=== PATIENT | female | born 1945 | race Caucasian/White ===

== ENCOUNTER 2018-11-17 18:31 | Emergency (ER) | payer MEDICARE, MEDICAID ==
[~2018-11-17] VITALS: Ht 157.5 cm; Wt 50.8 kg
[~2018-11-17 18:31] MED LIST: ALBU2.5V4 IH; ASPI-586 PO; CARV6.252 PO; HYDR-34 PO; HYDR-3820 PO; LISI-552 PO; OXYC40TA46 PO; PITA2TAB2 PO; POTA10TA6 PO; RT-ALBUINH IH
[2018-11-17 18:50] LABS: BILIRUBIN,URINE NEGATIVE (NEGATIVE); CLARITY,URINE CLEAR; COLOR,URINE PALE YELLOW; GLUCOSE, URINE (UA) NEGATIVE (NEGATIVE); KETONES,URINE NEGATIVE (NEGATIVE); LEUKOCYTE ESTERASE ,URINE TRACE (NEGATIVE); NITRITE,URINE NEGATIVE (NEGATIVE); PH,URINE 6.5 (5-9); PROTEIN,URINE NEGATIVE (NEGATIVE); UROBILINOGEN,URINE 0.2 MG/DL (NORMAL)
[2018-11-17 18:51] LABS: BACTERIA,URINE NEGATIVE /HPF; SQUAMOUS EPITHELIAL CELL,UR 0-2 /HPF; WBC,URINE RARE /HPF
--- NOTE | 2018-11-17 20:33 | NUR ---
attempted iv, able to get blood but coudnt thread iv
[2018-11-17 20:41] LABS: HEMATOCRIT 48 % (35-52); MEAN CORPUSCULAR HEMOGLOBIN 32 PG (25-34); MEAN CORPUSCULAR HGB CONC 34 G/DL (32-36); MEAN CORPUSCULAR VOLUME 96 FL (80-99); RED CELL DISTRIBUTION WIDTH 12.2 % (10.0-14.5); WHITE BLOOD COUNT 10.5 10^3/uL (4.3-11.0)
--- NOTE | 2018-11-17 20:41 | NUR ---
pt wanting to take nighttime pain medication, Dr Sandy notified and oked pain medication. pt able to take without difficulty.
[2018-11-17 20:42] LABS: BASOPHILS # (AUTO) 0.1 10^3/uL (0.0-0.1); BASOPHILS % (AUTO) 1 % (0-10); EOSINOPHILS # (AUTO) 0.2 10^3/uL (0.0-0.3); EOSINOPHILS % (AUTO) 2 % (0-10); LYMPHOCYTES # (AUTO) 2.3 X 10^3 (1.0-4.0); LYMPHOCYTES % (AUTO) 22 % (12-44); MONOCYTES # (AUTO) 0.6 X 10^3 (0.0-1.0); MONOCYTES % (AUTO) 6 % (0-12); NEUTROPHILS # (AUTO) 7.4 X 10^3 (1.8-7.8); NEUTROPHILS % (AUTO) 70 % (42-75); PLATELET COUNT 311 10^3/uL (130-400)
[2018-11-17 20:58] LABS: ALANINE AMINOTRANSFERASE 10 U/L (0-55); ALBUMIN 4.3 GM/DL (3.2-4.5); ALKALINE PHOSPHATASE 118 U/L (40-136); BILIRUBIN,TOTAL 0.4 MG/DL (0.1-1.0); BUN/CREATININE RATIO 18; CALCIUM 9.5 MG/DL (8.5-10.1); CARBON DIOXIDE 22 MMOL/L (21-32); CHLORIDE 103 MMOL/L (98-107); CREATININE SERUM 0.55 MG/DL (0.60-1.30); GFR ESTIMATED > 60; GLUCOSE 102 MG/DL (70-105); LIPASE 15 U/L (8-78); SODIUM 140 MMOL/L (135-145); TOTAL PROTEIN 7.3 GM/DL (6.4-8.2)
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
--- NOTE | 2018-11-17 22:15 | Diagnostic Imaging Report ---
PROCEDURE: CT urinary tract, rule out kidney stone. TECHNIQUE: Multiple contiguous axial images were obtained through the abdomen and pelvis without the use of intravenous contrast. Auto Exposure Controls were utilized during the CT exam to meet ALARA standards for radiation dose reduction. INDICATION: Right flank pain. COMPARISON: There are no prior studies available for comparison. FINDINGS: There is no evidence for nephrolithiasis. The renal pelves are somewhat prominent, particularly the right renal pelvis. 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 There is no evidence for obstructive calculus involving either collecting system. There is no sign of a solid renal mass. There is a calcification near the base of the bladder on the left. This seems to be extrinsic to the left ureter, however. The urinary bladder is grossly unremarkable. The uterus is surgically absent. There is diverticulosis of the sigmoid colon but there is no sign of an acute diverticulitis. The appendix is visualized and is not abnormally thickened. The liver, spleen, pancreas, adrenals, aorta and inferior vena cava show no sign of an acute abnormality. The gallbladder is surgically absent. The common bile duct near its entry into the head of the pancreas is dilated, measuring 11 mm. The proximal biliary tree is also slightly dilated. There is no obstructive calculus or mass identified, however. I suspect that the dilatation of the common bile duct is related to the prior cholecystectomy. If further evaluation of the duct is desired, then MRCP would be recommended. The stomach is only partially distended and consequently difficult to assess. The lung bases show chronic pulmonary changes. There is no evidence for pneumonia or for a pleural effusion. The bone windows are unremarkable for a fracture or for a destructive lesion. IMPRESSION: 1. The renal pelves are somewhat prominent, but there is no sign of obstructive calculus. 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 If further evaluation is desired, then a followup CT exam with intravenous contrast would be recommended. 2. There is no acute abnormality in the abdomen or pelvis noted otherwise. 3. The common bile duct and the proximal biliary tree are dilated. There is no evidence for an obstructive calculus or mass and the dilatation of the common bile duct is probably related to the patient's prior cholecystectomy. If further study is desired, then MRCP would be recommended. Dictated by: Dictated on workstation # [id number]
[2018-11-17] MEDS ORDERED: METR-145 PO (23:58)
[2018-11-18 00:03] VITALS: BP 122/37
== END 2018-11-18 00:03 | disposition home or self-care (01) ==
LOC: EDUNIT# 18:31 → ER FS 18:33
DX: R10.9 Unspecified abdominal pain (principal); R19.7 Diarrhea, unspecified; J44.9 Chronic obstructive pulmonary disease, unspecified; M81.0 Age-related osteoporosis without current pathological fracture; E03.9 Hypothyroidism, unspecified; F17.210 Nicotine dependence, cigarettes, uncomplicated; Z87.19 Personal history of other diseases of the digestive system; Z88.2 Allergy status to sulfonamides; Z88.8 Allergy status to other drugs, medicaments and biological substances; Z85.828 Personal history of other malignant neoplasm of skin; Z91.048 Other nonmedicinal substance allergy status; Z79.82 Long term (current) use of aspirin
CPT/HCPCS: 36415; 74176; 80053; 81000; 83690; 85025

== ENCOUNTER → 2020-06-02 | Outpatient (CLI) | payer MEDICARE, MEDICAID ==
[~2020-06-02] MED LIST changes: +ACHYD1T PO; -HYDR-3820 PO; +METR-145 PO
--- NOTE | 2020-06-02 12:47 | Diagnostic Imaging Report ---
INDICATION: Arm pain COMPARISON: None. FINDINGS: 2 views of the left humerus were obtained and show no fractures, dislocations, or other acute bony abnormalities. Joint spaces are well maintained throughout. The soft tissues appear unremarkable. No radiopaque foreign bodies are identified. IMPRESSION: Unremarkable radiographic exam of the left humerus. Dictated by: Dictated on workstation # [id number]
--- NOTE | 2020-06-02 12:54 | Diagnostic Imaging Report ---
INDICATION: Shoulder pain COMPARISON: None. FINDINGS: 2 views of the left shoulder were obtained. There is no fracture, dislocation, or other acute bony abnormality identified. The soft tissues appear unremarkable. No radiopaque foreign bodies identified. The visualized portions of the left lung are clear. IMPRESSION: No acute fractures or dislocations of the left shoulder. Dictated by: Dictated on workstation # [id number]
== END ==
LOC: RAD FS 12:29
PROVIDERS: ATTEND Nurse Practitioner Family
DX: M79.622 Pain in left upper arm (principal); M25.512 Pain in left shoulder
CPT/HCPCS: 73030; 73060

== ENCOUNTER 2020-12-30 10:29 | Emergency (ER) | payer MEDICARE, MEDICAID ==
[~2020-12-30] VITALS: Ht 152 cm; Wt 48.0 kg
[~2020-12-30 10:29] MED LIST changes: -LISI-552 PO; +LISI20TA26 PO
[2020-12-30 11:00] LABS: BILIRUBIN,URINE NEGATIVE (NEGATIVE); CLARITY,URINE CLOUDY; COLOR,URINE YELLOW; GLUCOSE, URINE (UA) NEGATIVE (NEGATIVE); KETONES,URINE NEGATIVE (NEGATIVE); LEUKOCYTE ESTERASE ,URINE 1+ (NEGATIVE); NITRITE,URINE POSITIVE (NEGATIVE); PH,URINE 5.5 (5-9); PROTEIN,URINE NEGATIVE (NEGATIVE)
[2020-12-30 11:01] LABS: BACTERIA,URINE MODERATE /HPF; SQUAMOUS EPITHELIAL CELL,UR 0-2 /HPF; WBC,URINE >100 /HPF
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
[2020-12-30 11:12] LABS: BASOPHILS % (AUTO) 1 % (0-10); EOSINOPHILS % (AUTO) 2 % (0-10); HEMATOCRIT 45 % (35-52); HEMOGLOBIN 14.9 G/DL (11.5-16.0); LYMPHOCYTES % (AUTO) 21 % (12-44); MEAN CORPUSCULAR HEMOGLOBIN 32 PG (25-34); MEAN CORPUSCULAR HGB CONC 33 G/DL (32-36); MEAN CORPUSCULAR VOLUME 96 FL (80-99); MEAN PLATELET VOLUME 9.8 FL (7.4-10.4); MONOCYTES % (AUTO) 8 % (0-12); NEUTROPHILS % (AUTO) 69 % (42-75); PLATELET COUNT 387 10^3/uL (130-400); WHITE BLOOD COUNT 11.7 10^3/uL (4.3-11.0)
[2020-12-30 11:13] LABS: BASOPHILS # (AUTO) 0.1 10^3/uL (0.0-0.1); EOSINOPHILS # (AUTO) 0.2 10^3/uL (0.0-0.3); LYMPHOCYTES # (AUTO) 2.5 X 10^3 (1.0-4.0); NEUTROPHILS # (AUTO) 8.1 X 10^3 (1.8-7.8)
[2020-12-30] MEDS ORDERED: CIPR500T5 PO (11:14)
--- NOTE | 2020-12-30 11:27 | Diagnostic Imaging Report ---
EXAMINATION: CT head without contrast. TECHNIQUE: Multiple contiguous axial images were obtained through the brain without the use of intravenous contrast. All CT scans use one or more of the following dose optimizing techniques: automated exposure control, MA and/or KvP adjustment based on patient size and exam type or iterative reconstruction. HISTORY: Altered mental status. Memory loss. Dizziness. COMPARISON: None available. FINDINGS: No large acute territorial ischemia, mass, or hemorrhage. No midline shift or mass effect. The ventricles, cortical sulci, and basilar cisterns are patent and unremarkable. The orbits are normal. Paranasal sinuses are normal. Mastoid air cells are clear. No soft tissue abnormality is seen. No osseus lesions or fractures are seen. IMPRESSION: 1. No large acute territorial ischemia, mass, or hemorrhage. Dictated by: Dictated on workstation # [id number]
[2020-12-30 11:33] LABS: ALANINE AMINOTRANSFERASE 10 U/L (0-55); ALKALINE PHOSPHATASE 127 U/L (40-136); BILIRUBIN,TOTAL 0.3 MG/DL (0.1-1.0); BUN/CREATININE RATIO 26; CALCIUM 9.6 MG/DL (8.5-10.1); CARBON DIOXIDE 24 MMOL/L (21-32); CHLORIDE 104 MMOL/L (98-107); GFR ESTIMATED > 60; GLUCOSE 119 MG/DL (70-105); SODIUM 140 MMOL/L (135-145)
[2020-12-30 11:34] LABS: ALBUMIN 4.2 GM/DL (3.2-4.5)
[2020-12-30 11:45] VITALS: BP 140/58
== END 2020-12-30 11:46 | disposition home or self-care (01) ==
LOC: EDUNIT# 10:29 → ER FS 10:32
DX: N39.0 Urinary tract infection, site not specified (principal); J44.9 Chronic obstructive pulmonary disease, unspecified; F17.210 Nicotine dependence, cigarettes, uncomplicated; Z79.82 Long term (current) use of aspirin
CPT/HCPCS: 36415; 70450; 80053; 81000; 85025; 87088

== ENCOUNTER 2022-01-28 08:58 | Emergency (ER) | payer MEDICARE, MEDICAID ==
[~2022-01-28] VITALS: Ht 152.4 cm; Wt 52.3 kg
[~2022-01-28 08:58] MED LIST changes: +CIPR500T5 PO; +POTA-160 PO; -POTA10TA6 PO
[2022-01-28 09:13] VITALS: BP 186/102
[2022-01-28] MEDS ORDERED: fentaNYL INJ 100 MCG/2 ML AMP IVP STA (09:20)
[2022-01-28] MEDS ORDERED: NS IV 1000 ML 1,000 ML IV STA (09:20)
[2022-01-28] MEDS ORDERED: KETOROLAC 30 MG/ML VIAL IVP STA (09:20)
[2022-01-28 09:21] LABS: CLARITY,URINE CLOUDY; COLOR,URINE YELLOW; GLUCOSE, URINE (UA) NEGATIVE (NEGATIVE); KETONES,URINE NEGATIVE (NEGATIVE); LEUKOCYTE ESTERASE ,URINE TRACE (NEGATIVE); NITRITE,URINE NEGATIVE (NEGATIVE); PH,URINE 5.5 (5-9); PROTEIN,URINE TRACE (NEGATIVE)
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
[2022-01-28 09:31] LABS: BASOPHILS % (AUTO) 0 % (0-10); EOSINOPHILS % (AUTO) 0 % (0-10); HEMATOCRIT 47 % (35-52); HEMOGLOBIN 15.9 g/dL (11.5-16.0); LYMPHOCYTES % (AUTO) 16 % (12-44); MEAN CORPUSCULAR HEMOGLOBIN 31 pg (25-34); MEAN CORPUSCULAR HGB CONC 34 g/dL (32-36); MEAN CORPUSCULAR VOLUME 91 fL (80-99); MEAN PLATELET VOLUME 8.9 fL (9.0-12.2); MONOCYTES # (AUTO) 0.5 10^3/uL (0.0-1.0); MONOCYTES % (AUTO) 4 % (0-12); NEUTROPHILS % (AUTO) 79 % (42-75); PLATELET COUNT 389 10^3/uL (130-400); WHITE BLOOD COUNT 12.7 10^3/uL (4.3-11.0)
--- NOTE | 2022-01-28 09:54 | Diagnostic Imaging Report ---
INDICATION: Left flank pain and dysuria. TECHNIQUE: Multiple contiguous axial images were obtained through the abdomen and pelvis without the use of intravenous contrast. Auto Exposure Controls were utilized during the CT exam to meet ALARA standards for radiation dose reduction. Comparison made with 11/17/2018 Visualized portions of the lung bases show emphysematous changes. There is no focal infiltrate or pleural fluid. There are degenerative changes in the lumbar spine with moderate anterolisthesis of L4 on L5. The liver shows no focal lesion. Patient has had prior cholecystectomy. Spleen shows no focal lesion. 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 Adrenals and right kidney are normal. Left kidney shows small intrarenal calculi superior. There is left hydronephrosis and hydroureter, down to the level of a 3 mm stone in the left distal ureter a few centimeters above the UVJ. There are pancreatic calcifications which may indicate chronic pancreatitis. There appears to be increased pancreatic ductal prominence compared to the prior study with a prominent pancreatic duct stone measuring a centimeter. There is no retroperitoneal mass or adenopathy. There is no ascites or abnormal fluid collection. Visualized bowel loops are unremarkable IMPRESSION: There is left hydronephrosis and hydroureter, down to the level of a 3 mm stone in the left distal ureter a few cm above the left UVJ. There are couple tiny intrarenal stones in the left kidney as well. Patient has had previous cholecystectomy. There is moderate size hiatal hernia. There is increasing pancreatic ductal dilatation with a prominent 1 cm pancreatic duct stone. There are additional pancreatic calcifications that may be due to chronic pancreatitis. Dictated by: Dictated on workstation # [id number]
[2022-01-28 09:55] LABS: BACTERIA,URINE FEW /HPF; BILIRUBIN,URINE 1+ (NEGATIVE); RBC,URINE 50-100 /HPF; WBC,URINE 25-50 /HPF
[2022-01-28 10:10] LABS: BILIRUBIN,TOTAL 0.3 MG/DL (0.1-1.0); CALCIUM 9.5 MG/DL (8.5-10.1); CREATININE SERUM 0.64 MG/DL (0.60-1.30); POTASSIUM 3.6 MMOL/L (3.6-5.0)
[2022-01-28 10:11] LABS: ALBUMIN 4.3 GM/DL (3.2-4.5); TOTAL PROTEIN 7.4 GM/DL (6.4-8.2)
[2022-01-28] MEDS ORDERED: cefTRIAXone 1 GM PRE-MIX 50 ML IV STA (11:09)
[2022-01-28] MEDS ORDERED: CIPR500T5 PO (11:37)
[2022-01-28] MEDS ORDERED: OXYC-556 PO (11:37)
== END 2022-01-28 11:52 | disposition home or self-care (01) ==
LOC: EDUNIT# 08:58 → ER FS 08:59
DX: N13.2 Hydronephrosis with renal and ureteral calculous obstruction (principal); N30.01 Acute cystitis with hematuria; E86.0 Dehydration; Z72.0 Tobacco use; Z88.1 Allergy status to other antibiotic agents; Z88.6 Allergy status to analgesic agent; Z91.040 Latex allergy status; Z28.310 Unvaccinated for COVID-19
CPT/HCPCS: 36415; 74176; 80053; 81000; 83605; 83690; 85025; 87088

== ENCOUNTER 2022-11-29 14:58 | Emergency (ER) | payer MEDICARE, MEDICAID ==
[~2022-11-29 14:58] MED LIST changes: +ALBU8.5H6 IH; +OXYC-556 PO; -RT-ALBUINH IH
[2022-11-29] MEDS ORDERED: NS IV 1000 ML 1,000 ML IV STA (15:11)
[2022-11-29] MEDS ORDERED: PANTOPRAZOLE 40 MG (PROTONIX) VIAL IV STA (15:11)
[2022-11-29] MEDS ORDERED: KETOROLAC 15 MG/ML VIAL IVP STA (15:11)
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
[2022-11-29 15:35] LABS: BASOPHILS # (AUTO) 0.1 10^3/uL (0.0-0.1); BASOPHILS % (AUTO) 1 % (0-10); EOSINOPHILS # (AUTO) 0.1 10^3/uL (0.0-0.3); EOSINOPHILS % (AUTO) 1 % (0-10); HEMATOCRIT 48 % (35-52); LYMPHOCYTES # (AUTO) 2.8 10^3/uL (1.0-4.0); LYMPHOCYTES % (AUTO) 24 % (12-44); MEAN CORPUSCULAR HEMOGLOBIN 31 pg (25-34); MEAN CORPUSCULAR HGB CONC 33 g/dL (32-36); MEAN CORPUSCULAR VOLUME 93 fL (80-99); MEAN PLATELET VOLUME 9.9 fL (9.0-12.2); MONOCYTES # (AUTO) 0.8 10^3/uL (0.0-1.0); MONOCYTES % (AUTO) 7 % (0-12); NEUTROPHILS % (AUTO) 68 % (42-75); PLATELET COUNT 431 10^3/uL (130-400); WHITE BLOOD COUNT 11.8 10^3/uL (4.3-11.0)
[2022-11-29 15:48] LABS: INR 0.8 (0.8-1.4)
--- NOTE | 2022-11-29 16:00 | Diagnostic Imaging Report ---
INDICATION: Epigastric pain. FINDINGS: The heart size, mediastinal configuration, and pulmonary vascularity are within normal limits. There is no pleural effusion, pneumothorax, or pneumonia. The osseous structures are unremarkable. IMPRESSION: No acute cardiopulmonary abnormality. Dictated by: Dictated on workstation # [id number]
[2022-11-29 16:11] LABS: ALANINE AMINOTRANSFERASE 10 U/L (0-55); ALKALINE PHOSPHATASE 129 U/L (40-136); BILIRUBIN,TOTAL 0.2 MG/DL (0.1-1.0); BUN/CREATININE RATIO 27; CALCIUM 9.9 MG/DL (8.5-10.1); CARBON DIOXIDE 26 MMOL/L (21-32); CHLORIDE 101 MMOL/L (98-107); CREATININE SERUM 0.56 MG/DL (0.60-1.30); GFR ESTIMATED 95; GLUCOSE 140 MG/DL (70-105); MAGNESIUM 2.1 MG/DL (1.6-2.4); POTASSIUM 3.8 MMOL/L (3.6-5.0); SODIUM 139 MMOL/L (135-145)
[2022-11-29 16:12] LABS: ALBUMIN 4.1 GM/DL (3.2-4.5); LIPASE 231 U/L (8-78); TOTAL PROTEIN 7.4 GM/DL (6.4-8.2)
[2022-11-29] MEDS ORDERED: HOLD METFORMIN - RECEIVED CONTRAST 20 ML VIAL IV SCH (16:15)
[2022-11-29] MEDS ORDERED: IOHEXOL 350 MG/ML 100 ML (OMNIPAQUE 350) VIAL IV ONE (16:15)
[2022-11-29] MEDS ORDERED: NS 100 ML (IVPB) BAG IV ONE (16:15)
--- NOTE | 2022-11-29 16:48 | Diagnostic Imaging Report ---
PROCEDURE: CT abdomen and pelvis with contrast. TECHNIQUE: Multiple contiguous axial images were obtained through the abdomen and pelvis after administration of intravenous contrast. Auto Exposure Controls were utilized during the CT exam to meet ALARA standards for radiation dose reduction. All CT scans use one or more of the following dose optimizing techniques: automated exposure control, MA and/or KvP adjustment based on patient size and exam type or iterative reconstruction. INDICATION: Epigastric pain. COMPARISON: Comparison is made with prior CT from 01/28/2022. FINDINGS: Lung bases are clear of acute infiltrates. There appear to be emphysematous changes in both lungs. No discrete liver mass is detected. Gallbladder is surgically absent. No biliary ductal dilatation is seen. The largest stone within the pancreatic duct at the level of the pancreatic head is again noted with diffuse pancreatic ductal dilatation. There does appear to be some very mild peripancreatic stranding at the level of the pancreatic head but no peripancreatic fluid collection is seen. The spleen is unremarkable. 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 No adrenal mass is detected. There is a tiny nonobstructing stone in the upper pole of the left kidney as well as a probable punctate stone in the lower pole of the left kidney. Right kidney is without calculi. No ureteral or bladder calculi are seen. There is no hydronephrosis. Aorta is heavily calcified but nonaneurysmal. The small and large bowel loops are normal in caliber. There is no obstruction. There is a large amount of stool in the right colon. There is extensive diverticulosis of the sigmoid colon but no evidence of acute diverticulitis. There is no free fluid or fluid collection identified. Uterus is surgically absent. The bony structures are nonacute. IMPRESSION: 1. Large stone within the pancreatic duct with pancreatic duct dilatation, similar to prior exam from January 2022. There does appear to be very mild inflammatory stranding surrounding the pancreatic head and the possibility of mild pancreatitis cannot be entirely excluded. No peripancreatic fluid collection is identified. 2. Nonobstructing left-sided nephrolithiasis. No ureteral calculi or hydronephrosis is seen. 3. Moderate stool load in the right colon. 4. Uncomplicated diverticulosis. Dictated by: Dictated on workstation # [id number]
[2022-11-29 16:53] LABS: BILIRUBIN,URINE NEGATIVE (NEGATIVE); CLARITY,URINE CLEAR; COLOR,URINE YELLOW; GLUCOSE, URINE (UA) NEGATIVE (NEGATIVE); KETONES,URINE NEGATIVE (NEGATIVE); LEUKOCYTE ESTERASE ,URINE NEGATIVE (NEGATIVE); NITRITE,URINE NEGATIVE (NEGATIVE); PROTEIN,URINE NEGATIVE (NEGATIVE)
[2022-11-29 16:58] LABS: BACTERIA,URINE NEGATIVE /HPF; RBC,URINE 0-2 /HPF; SQUAMOUS EPITHELIAL CELL,UR RARE /HPF; WBC,URINE RARE /HPF
[2022-11-29 17:11] VITALS: BP 143/78
[2022-12-02] MEDS ORDERED: OXYC1TAB15 PO (09:28)
== END 2022-11-29 17:11 | disposition home or self-care (01) ==
LOC: EDUNIT# 14:58 → ER FS 15:00
DX: K85.90 Acute pancreatitis without necrosis or infection, unspecified (principal); K86.89 Other specified diseases of pancreas; R74.8 Abnormal levels of other serum enzymes; R00.0 Tachycardia, unspecified; G89.29 Other chronic pain; M54.50 Low back pain, unspecified; R73.9 Hyperglycemia, unspecified; Z79.1 Long term (current) use of non-steroidal anti-inflammatories (NSAID); Z91.040 Latex allergy status
CPT/HCPCS: 36415; 71045; 74177; 80053; 81000; 83690; 83735; 83880; 84484; 85025; 85610; 85730; 93005; 93041; Q9967

== ENCOUNTER 2022-12-01 08:57 | Emergency (ER) | payer MEDICARE, MEDICAID ==
[~2022-12-01] VITALS: Ht 152 cm; Wt 54.0 kg
[2022-12-01] MEDS ORDERED: morphine INJ 10 MG/ML 1ML (SYR OR VIAL) IVP STA (09:10)
[2022-12-01] MEDS ORDERED: NS IV 500 ML 500 ML IV STA (09:12)
[2022-12-01] MEDS ORDERED: ONDANSETRON 4 MG/2 ML (SDV) Z0FRAN IVP ONE (09:15)
[2022-12-01] MEDS ORDERED: KETOROLAC 15 MG/ML VIAL IVP ONE (09:15)
[2022-12-01 09:16] LABS: BASOPHILS # (AUTO) 0.1 10^3/uL (0.0-0.1); BASOPHILS % (AUTO) 1 % (0-10); EOSINOPHILS # (AUTO) 0.1 10^3/uL (0.0-0.3); EOSINOPHILS % (AUTO) 1 % (0-10); HEMATOCRIT 48 % (35-52); HEMOGLOBIN 15.8 g/dL (11.5-16.0); LYMPHOCYTES # (AUTO) 1.8 10^3/uL (1.0-4.0); LYMPHOCYTES % (AUTO) 16 % (12-44); MEAN CORPUSCULAR HEMOGLOBIN 31 pg (25-34); MEAN CORPUSCULAR HGB CONC 33 g/dL (32-36); MEAN CORPUSCULAR VOLUME 94 fL (80-99); MEAN PLATELET VOLUME 9.3 fL (9.0-12.2); MONOCYTES # (AUTO) 0.6 10^3/uL (0.0-1.0); MONOCYTES % (AUTO) 6 % (0-12); NEUTROPHILS # (AUTO) 8.5 10^3/uL (1.8-7.8); NEUTROPHILS % (AUTO) 77 % (42-75); PLATELET COUNT 414 10^3/uL (130-400); WHITE BLOOD COUNT 11.1 10^3/uL (4.3-11.0)
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
[2022-12-01 09:37] LABS: INR 0.9 (0.8-1.4); PROTHROMBIN TIME PATIENT 12.3 SEC (12.2-14.7)
[2022-12-01 09:47] LABS: ALANINE AMINOTRANSFERASE 9 U/L (0-55); ALBUMIN 4.1 GM/DL (3.2-4.5); ALKALINE PHOSPHATASE 146 U/L (40-136); BILIRUBIN,TOTAL 0.4 MG/DL (0.1-1.0); BUN/CREATININE RATIO 20; CALCIUM 9.9 MG/DL (8.5-10.1); CARBON DIOXIDE 24 MMOL/L (21-32); CHLORIDE 98 MMOL/L (98-107); CREATININE SERUM 0.44 MG/DL (0.60-1.30); GFR ESTIMATED 101; GLUCOSE 121 MG/DL (70-105); LIPASE 109 U/L (8-78); POTASSIUM 3.9 MMOL/L (3.6-5.0); SODIUM 136 MMOL/L (135-145); TOTAL PROTEIN 7.5 GM/DL (6.4-8.2)
[2022-12-01 10:25] VITALS: BP 157/79
[2022-12-01] MEDS ORDERED: OXYC1TAB16 PO (21:14)
[2022-12-02] MEDS ORDERED: OXYC1TAB15 PO (09:28)
== END 2022-12-01 10:15 | disposition home or self-care (01) ==
LOC: EDUNIT# 08:57 → ER FS 08:58
DX: K86.1 Other chronic pancreatitis (principal); K85.90 Acute pancreatitis without necrosis or infection, unspecified; F17.210 Nicotine dependence, cigarettes, uncomplicated; Z91.040 Latex allergy status
CPT/HCPCS: 36415; 80053; 83605; 83690; 83735; 84484; 85025; 85610; 85730; 93005

== ENCOUNTER 2022-12-01 19:39 | Emergency (ER) | payer MEDICARE, MEDICAID ==
[~2022-12-01] VITALS: Ht 152.4 cm; Wt 50.8 kg
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
[2022-12-01] MEDS ORDERED: morphine INJ 10 MG/ML 1ML (SYR OR VIAL) IVP STA (20:39)
[2022-12-01] MEDS ORDERED: LACTATED RINGERS 1,000 ML IV SCH (20:45)
[2022-12-01] MEDS ORDERED: ONDANSETRON 4 MG/2 ML (SDV) Z0FRAN IVP ONE (20:45)
[2022-12-01 21:00] LABS: ALBUMIN 3.7 GM/DL (3.2-4.5); BILIRUBIN,TOTAL 0.3 MG/DL (0.1-1.0); CALCIUM 9.1 MG/DL (8.5-10.1); CREATININE SERUM 0.62 MG/DL (0.60-1.30); POTASSIUM 3.7 MMOL/L (3.6-5.0); TOTAL PROTEIN 6.7 GM/DL (6.4-8.2)
[2022-12-01] MEDS ORDERED: OXYC1TAB16 PO (21:14)
[2022-12-01] MEDS ORDERED: oxyCODONE/APAP 5/325MG (PERCOCET 5) TABLET PO ONE (21:15)
[2022-12-01 21:37] VITALS: BP 175/81
[2022-12-02] MEDS ORDERED: OXYC1TAB15 PO (09:28)
== END 2022-12-01 21:37 | disposition home or self-care (01) ==
LOC: EDUNIT# 19:39 → ER 19:41
DX: K86.1 Other chronic pancreatitis (principal); K86.89 Other specified diseases of pancreas; J44.9 Chronic obstructive pulmonary disease, unspecified; F11.20 Opioid dependence, uncomplicated; F17.200 Nicotine dependence, unspecified, uncomplicated; Z99.81 Dependence on supplemental oxygen; Z91.040 Latex allergy status
CPT/HCPCS: 36415; 80053; 83690

== ENCOUNTER 2022-12-03 21:43 | Emergency (ER) | payer MEDICARE, MEDICAID ==
[~2022-12-03] VITALS: Ht 152.4 cm; Wt 52.2 kg
[~2022-12-03 21:43] MED LIST changes: +OXYC1TAB15 PO; +OXYC1TAB16 PO
[2022-12-03 22:12] VITALS: BP 184/106
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
[2022-12-03] MEDS ORDERED: DICYCLOMINE 10 MG/ML (BENTYL) 2 ML AMP IM STA (22:59)
== END 2022-12-03 23:36 | disposition home or self-care (01) ==
LOC: EDUNIT# 21:43 → ER 21:45
DX: K86.1 Other chronic pancreatitis (principal); R00.0 Tachycardia, unspecified; R03.0 Elevated blood-pressure reading, without diagnosis of hypertension; F17.200 Nicotine dependence, unspecified, uncomplicated; Z91.040 Latex allergy status; Z90.49 Acquired absence of other specified parts of digestive tract; Z28.310 Unvaccinated for COVID-19
CPT/HCPCS: 99283

== ENCOUNTER 2023-01-12 13:46 | Emergency (ER) | payer MEDICARE, MEDICAID ==
[~2023-01-12] VITALS: Ht 152 cm; Wt 50.0 kg
[2023-01-12 13:57] VITALS: BP 156/80
[2023-01-12] MEDS ORDERED: ALPRAZolam 0.5 MG TABLET PO ONE (14:15)
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
== END 2023-01-12 14:37 | disposition home or self-care (01) ==
LOC: EDUNIT# 13:46 → ER FS 13:48
DX: F43.0 Acute stress reaction (principal); F17.210 Nicotine dependence, cigarettes, uncomplicated; Z91.040 Latex allergy status
CPT/HCPCS: 99283

== ENCOUNTER 2023-05-06 11:32 | Emergency (ER) | payer MEDICARE, MEDICAID ==
[~2023-05-06] VITALS: Ht 152 cm; Wt 50.0 kg
[2023-05-06] MEDS ORDERED: NS IV 1000 ML 1,000 ML IV STA ×2 (11:39→12:35)
[2023-05-06 11:51] LABS: BASOPHILS % (AUTO) 1 % (0-10); EOSINOPHILS % (AUTO) 0 % (0-10); HEMATOCRIT 49 % (35-52); HEMOGLOBIN 15.9 g/dL (11.5-16.0); LYMPHOCYTES # (AUTO) 0.7 10^3/uL (1.0-4.0); LYMPHOCYTES % (AUTO) 8 % (12-44); MEAN CORPUSCULAR HEMOGLOBIN 31 pg (25-34); MEAN CORPUSCULAR HGB CONC 32 g/dL (32-36); MEAN CORPUSCULAR VOLUME 97 fL (80-99); MEAN PLATELET VOLUME 9.6 fL (9.0-12.2); MONOCYTES % (AUTO) 1 % (0-12); NEUTROPHILS # (AUTO) 7.9 10^3/uL (1.8-7.8); NEUTROPHILS % (AUTO) 90 % (42-75); PLATELET COUNT 346 10^3/uL (130-400); WHITE BLOOD COUNT 8.8 10^3/uL (4.3-11.0)
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
[2023-05-06] MEDS ORDERED: HYDROcodone/ACETAMINOPHEN 5 MG/325 MG TABLET PO ONE (12:00)
[2023-05-06 12:02] LABS: BILIRUBIN,URINE NEGATIVE (NEGATIVE); CLARITY,URINE CLOUDY; COLOR,URINE YELLOW; GLUCOSE, URINE (UA) NEGATIVE (NEGATIVE); KETONES,URINE NEGATIVE (NEGATIVE); LEUKOCYTE ESTERASE ,URINE 2+ (NEGATIVE); NITRITE,URINE POSITIVE (NEGATIVE); PH,URINE 5.5 (5-9); PROTEIN,URINE 1+ (NEGATIVE)
[2023-05-06] MEDS ORDERED: HYDROcodone/ACETAMINOPHEN 10/325 TABLET PO STA (12:02)
[2023-05-06 12:03] LABS: PROTHROMBIN TIME PATIENT 13.1 SEC (12.2-14.7)
[2023-05-06 12:12] LABS: BACTERIA,URINE LARGE /HPF; SQUAMOUS EPITHELIAL CELL,UR 0-2 /HPF; WBC,URINE 50-100 /HPF
[2023-05-06 12:12] LABS: POTASSIUM 3.9 MMOL/L (3.6-5.0)
[2023-05-06 12:13] LABS: CALCIUM 9.6 MG/DL (8.5-10.1)
[2023-05-06 12:15] LABS: TOTAL PROTEIN 7.4 GM/DL (6.4-8.2)
[2023-05-06 12:17] LABS: BILIRUBIN,TOTAL 1.1 MG/DL (0.1-1.0)
[2023-05-06 12:18] LABS: CREATININE SERUM 0.61 MG/DL (0.60-1.30)
[2023-05-06] MEDS ORDERED: cefTRIAXone IV/IM 1,000 MG in NS (IVPB) 50 ML 50 ML IV STA (12:18)
[2023-05-06 12:34] LABS: BAND NEUTROPHILS 14 %; LYMPHOCYTES % (MANUAL) 14 %; MONOCYTES % (MANUAL) 2 %; NEUTROPHILS % (MANUAL) 70 %; PLATELET CLUMPS OCCASIONAL; TOXIC GRANULATION/VACUOLAZATIO 1+
[2023-05-06] MEDS ORDERED: IOHEXOL 350 MG/ML 100 ML (OMNIPAQUE 350) VIAL IV ONE (12:45)
[2023-05-06] MEDS ORDERED: NS 100 ML (IVPB) BAG IV ONE (12:45)
[2023-05-06] MEDS ORDERED: HOLD METFORMIN - RECEIVED CONTRAST 20 ML VIAL IV SCH (12:45)
--- NOTE | 2023-05-06 13:00 | Diagnostic Imaging Report ---
PROCEDURE: CT abdomen and pelvis with contrast, rule out appendicitis. TECHNIQUE: Multiple contiguous axial images were obtained through the abdomen and pelvis after the administration of intravenous contrast. All CT scans use one or more of the following dose optimizing techniques: automated exposure control, MA and/or KvP adjustment based on patient size and exam type or iterative reconstruction. INDICATION: Right-sided abdominal pain. COMPARISON: 11/29/2022. DISCUSSION: Changes of chronic lung disease are again noted within the lung bases. Normal heart size. No pleural or pericardial fluid. The gallbladder is surgically absent. Intrahepatic and extrahepatic biliary duct dilatation is again noted. A large stone is again noted within the mid pancreatic body with upstream pancreatic duct dilatation. Changes of chronic pancreatitis are stable. No inflammatory changes to suggest acute pancreatitis. Hiatal hernia is present. The spleen is unremarkable. Peripherally calcified splenic artery aneurysm within the splenic hilum is stable measuring 1.3 cm. Punctate nonobstructing left renal calculi are noted. No hydronephrosis on either side. Urinary bladder is unremarkable. The uterus is surgically absent. Diverticulosis with no secondary evidence for diverticulitis. No constipation or obstruction. No ascites or adenopathy. The aorta is normal in caliber and contains severe atherosclerotic plaque. IMPRESSION: 1. Nonobstructing left renal calculi. 2. Splenic artery aneurysm, stable. 3. Prominence of the biliary ducts both intrahepatic and extrahepatic along with pancreatic calcifications and pancreatic duct dilatation, stable. No inflammatory changes. 4. Diverticulosis. Dictated by: Dictated on workstation # [id number]
--- NOTE | 2023-05-06 13:01 | Diagnostic Imaging Report ---
INDICATION: Cough and dyspnea. COMPARISON: 11/29/2022. DISCUSSION: Single portable upright view of the chest was obtained. The lungs remain hyperinflated. Normal heart size. No consolidation, pleural fluid, or pneumothorax. No osseous abnormality. IMPRESSION: 1. Negative chest. Dictated by: Dictated on workstation # [id number]
[2023-05-06] MEDS ORDERED: CEFD300C3 PO ×2 (13:22→13:26)
[2023-05-06 14:25] VITALS: BP 150/87
== END 2023-05-06 14:25 | disposition home or self-care (01) ==
LOC: EDUNIT# 11:32 → ER 11:33
DX: N30.00 Acute cystitis without hematuria (principal); Z91.040 Latex allergy status; Z90.49 Acquired absence of other specified parts of digestive tract
CPT/HCPCS: 36415; 71045; 74177; 80053; 81000; 83605; 85007; 85027; 85610; 85730; 87040; 87077; 87088; 87186; 87636